=== PATIENT | female | born 1995 | race African-American/Black ===

== ENCOUNTER 2016-07-13 16:48 | Emergency (ER) | payer OTHER ==
--- NOTE | ~2016-07-13 | CR72 ---
[facility] A Service of [facility] RADIOLOGY TEXT RESULTS PATIENT: SACHA MAYO LOCATION: SED : 93 UNIT #: [id number] AGE: [address]: Maria Alejandra Lujan SEX: F ORDER DR: [id number] [address] [address] [id number] E MR#: [id number] Acc #: [id number] NAME: SACHA MAYO : 1995 SEX: F STUDY DATE/TIME: 07/13/2016 17:01 UNIT: SED ROOM: STUDY DESCRIPTION: CR Chest Single View Portable Attending Physician: Maria Alejandra Lujan Pa-C Ordering Physician: Maria Alejandra Lujan Pa-C Primary Care Physician: [facility] MEDICAL IMAGING REPORT This report is preliminary unless electronic signature is present. EXAM Frontal chest. DATE OF EXAM 07/13/2016 INDICATIONS 20-year-old female with sinus pressure and a cough for 2 days. REPORT Frontal chest. COMPARISON Compared with 10/19/2013. FINDINGS Cardiac silhouette unremarkable. Vascularity normal. Lungs clear. No effusion or pneumothorax. IMPRESSION 1. Negative chest. No change. Dictated by... Jerome Vargas M.D. THIS IS AN ELECTRONICALLY VERIFIED REPORT Jerome Vargas M.D. at 07/13/2016 10:29 PM STEVE/vanesa TD: 07/13/2016 22:05 JOB #: [id number] [facility] A Service of [facility] RADIOLOGY TEXT RESULTS PATIENT: SACHA MAYO LOCATION: SED : 93 UNIT #: [id number] AGE: [address]: Maria Alejandra Lujan SEX: F ORDER DR: MEDICAL IMAGING REPORT Page 1 of 1
[~2016-07-13 16:48] MED LIST: CIPRO PO; IBUPROFEN800 MG PO; NO MEDICATIONS; PHENERGAN25 MG PO; PRENATAL1 TA1 PO; PYRIDIUM PO
== END 2016-07-13 17:46 | disposition home or self-care (01) ==
LOC: SED 16:48
DX: J06.9 Acute upper respiratory infection, unspecified (principal)
CPT/HCPCS: 71010; 99283

== ENCOUNTER 2016-07-19 13:55 | Emergency (ER) | payer OTHER ==
--- NOTE | ~2016-07-19 | CT71 ---
[facility] A Service of [facility] RADIOLOGY TEXT RESULTS PATIENT: SACHA MAYO LOCATION: SED : 93 UNIT #: [id number] AGE: [address]: CALVIN YOUNG SEX: F ORDER DR: [id number] [address] [address] [id number] E MR#: [id number] Acc #: [id number] NAME: SACHA MAYO : 1995 SEX: F STUDY DATE/TIME: 07/19/2016 14:53 UNIT: SED ROOM: STUDY DESCRIPTION: CT Head Wo Contrast Attending Physician: Calvin Young Referring Physician: [facility] Ordering Physician: Soren López M.D. Primary Care Physician: [facility] MEDICAL IMAGING REPORT This report is preliminary unless electronic signature is present. EXAM CT head without contrast, 07/19/2016. HISTORY 20-year-old female with headache since last night. Seen on Jul 13 2016 for sinus infection. No known injury. COMPARISON None. FINDINGS No intracranial hemorrhage, mass lesion, mass effect or midline shift is seen. No CT evidence of acute or evolving infarct. Ventricular configuration is normal. There is marked opacification of the paranasal sinuses, particularly ethmoid and maxillary sinuses. Air-fluid levels are seen within bilateral maxillary sinuses. Findings are consistent with acute sinusitis. Mastoid air cells are clear. Calvaria is within normal limits. IMPRESSION 1. CT findings compatible with the appearance of acute sinusitis. Air-fluid levels are present in the bilateral maxillary sinuses, and there is marked mucosal thickening, particularly in the ethmoid and maxillary sinuses. 2. No acute intracranial findings. STAT * RESULT Dictated by... [facility] A Service of [facility] RADIOLOGY TEXT RESULTS PATIENT: SACHA MAYO LOCATION: SED : 93 UNIT #: [id number] AGE: [address]: CALVIN YOUNG SEX: F ORDER DR: Rhona Elias M.D. THIS IS AN ELECTRONICALLY VERIFIED REPORT Rhona Elias M.D. at 07/20/2016 2:22 PM EDDY/francia TD: 07/19/2016 16:54 JOB #: [id number] MEDICAL IMAGING REPORT Page 1 of 1
== END 2016-07-19 15:50 | disposition home or self-care (01) ==
LOC: SED 13:55
DX: J01.20 Acute ethmoidal sinusitis, unspecified (principal); J01.00 Acute maxillary sinusitis, unspecified; R03.0 Elevated blood-pressure reading, without diagnosis of hypertension
CPT/HCPCS: 70450; 84703; 96372; 99284; J1885